=== PATIENT | female | born 1975 ===

== ENCOUNTER 2021-04-26 09:14 | Outpatient (CLI) | payer OTHER | END 2021-04-26 09:33 | disposition home or self-care (01) | LOC: SONOGRAMA 09:14 | PROVIDERS: ATTEND Internal Medicine Gastroenterology | DX: R10.13 Epigastric pain (principal); K59.09 Other constipation ==

== ENCOUNTER 2024-08-30 08:49 | Outpatient (CLI) | payer OTHER ==
[~2024-08-30 08:49] MED LIST: DICLOFENAC POTA50 MG PO
== END 2024-08-30 08:58 | disposition home or self-care (01) ==
LOC: MAMO-SONO 08:49
PROVIDERS: ATTEND Family Medicine
DX: N60.11 Diffuse cystic mastopathy of right breast (principal); N60.12 Diffuse cystic mastopathy of left breast; Z12.31 Encounter for screening mammogram for malignant neoplasm of breast; M25.561 Pain in right knee